=== PATIENT | male | born 1995 | race Hispanic/Latino ===

== ENCOUNTER 2023-01-09 02:53 | Emergency (ER) | payer BC ==
[2023-01-09 14:02] LABS: ALT/SGPT 34 U/L (16-61); AST/SGOT 13 U/L (15-37); Albumin 3.9 g/dL (3.4-5.0); Alkaline Phosphatase 114 U/L (45-117); BUN Blood Urea Nitrogen 14 mg/dL (7-18); Bicarbonate 24 mEq/L (21-32); Bilirubin Direct < 0.1 mg/dL (0-0.2); Bilirubin Indirect, Calculated ND mg/dL (0.2-0.8); Bilirubin Total 0.4 mg/dL (0.2-1.0); Glomerular Filtration Rate 110 ml/min (=/>90); Glucose Level 113 mg/dL (74-106); Magnesium 2.2 mg/dL (1.6-2.4); NT PRO-BNP 11 pg/mL (<125); Potassium 3.7 mEq/L (3.5-5.1); Protein, Total 8.1 g/dL (6.4-8.2); Sodium Level 138 mEq/L (136-145); Troponin High Sensitivity 3.3 pg/mL (<58.9)
[2023-01-09 14:06] LABS: Absolute Lymphocytes (CBC) 3.5 K/uL (0.7-4.9); Lymphocytes % 22.2 % (15.3-44.8); MCV 84.4 fL (80-100); MPV 9.2 fL (7.6-11.3); RBC Red Blood Cell Count 5.56 M/uL (4.33-5.43)
[2023-01-09 14:07] LABS: Protime INR 1.12
--- NOTE | 2023-01-09 14:38 | RAD REPORT ---
EXAM DESCRIPTION: US - Abdomen Exam Limited - 01/09/2023 1:57 pm CLINICAL HISTORY: ABD PAIN COMPARISON: No comparisons FINDINGS: The gallbladder demonstrates small gallstones. No pericholecystic fluid or gallbladder wal l thickening. The common bile duct is normal measuring 4 mm. The liver demonstrates no findings of intrahepatic biliary dilatation. IMPRESSION: Cholelithiasis.
--- NOTE | 2023-01-09 15:41 | EKG ---
Test Date: 2023-01-09 Test Time: 03:07:04 Inside Meter Tester: ALBA MEASUREMENT RESULTS: Intervals: Rate: 75 OK: 150 QRSD: 94 QT: 350 QTc: 390 [place]: P: 14 OK: 150 QRS: 6 T: 3 INTERPRETIVE STATEMENTS: Sinus rhythm with marked sinus arrhythmia Otherwise normal ECG No previous ECG available for comparison Electronically Signed On 01-09-23 15:40:56 CDT by Daryl Freeman
--- NOTE | 2023-01-09 16:42 | EDPHYS ---
Physician Documentation [facility] Name: Art Corral Age: 27 yrs Sex: Male : 1995 Arrival Date: 01/09/2023 Time: 02:53 Bed 5 Private MD: ED Physician Erica Murdock HPI: 01/09 04:45 This 27 yrs old Male presents to ER via Ambulatory with complaints of Chest Pain. sp3 04:45 27-year-old male with no significant past medical history presents to the ED with chief sp3 complaint epigastric pain radiating superiorly in his chest. This is the third episode he has had over the last several months. This was coupled with 4-5 episodes of emesis today, nonbloody nonmucous. Denies any diarrhea, fever, high-fat food, alcohol intake, recreational drug use, back pain, shortness of breath, URI symptoms, or any other signs or symptoms on ROS at this time. Symptoms have now self resolved and patient is completely back to baseline. However with this being the third time, he decided to be seen. No past surgical history noted.. Historical: - Allergies: 02:59 No Known Allergies; as6 - PMHx: 02:59 None; as6 - PSHx: 02:59 None; as6 - Immunization history:: Client reports receiving the 2nd dose of the Covid vaccine, pfizer . - Social history:: Smoking status: Patient reports the use of cigarette tobacco products, denies chronic smoking, but will smoke occasionally. ROS: 04:49 Constitutional: Negative for fever, chills, and weight loss, Eyes: Negative for injury, sp3 pain, redness, and discharge, ENT: Negative for injury, pain, and discharge, Neck: Negative for injury, pain, and swelling, Respiratory: Negative for shortness of breath, cough, wheezing, and pleuritic chest pain, Back: Negative for injury and pain, MS/Extremity: Negative for injury and deformity, Skin: Negative for injury, rash, and discoloration, Neuro: Negative for headache, weakness, numbness, tingling, and seizure, Psych: Negative for depression, anxiety, suicide ideation, homicidal ideation, and hallucinations, Allergy/Immunology: Negative for hives, rash, and allergies, Endocrine: Negative for neck swelling, polydipsia, polyuria, polyphagia, and marked weight changes, Hematologic/Lymphatic: Negative for swollen nodes, abnormal bleeding, and unusual bruising. 04:49 All other systems are negative. Exam: 04:49 Constitutional: This is a well developed, well nourished patient who is awake, alert, sp3 and in no acute distress. Head/Face: Normocephalic, atraumatic. Eyes: Pupils equal round and reactive to light, extra-ocular motions intact. Lids and lashes normal. Conjunctiva and sclera are non-icteric and not injected. Cornea within normal limits. Periorbital areas with no swelling, redness, or edema. ENT: Nares patent. No nasal discharge, no septal abnormalities noted. External auditory canals are clear. Oropharynx with no redness, swelling, or masses, exudates, or evidence of obstruction, uvula midline. Mucous membranes moist. Neck: Trachea midline, no thyromegaly or masses palpated, and no cervical lymphadenopathy. Supple, full range of motion without nuchal rigidity, or vertebral point tenderness. No Meningismus. Chest/axilla: Normal chest wall appearance and motion. Nontender with no deformity. No lesions are appreciated. Cardiovascular: Regular rate and rhythm with a normal S1 and S2. No gallops, murmurs, or rubs. Normal PMI, no JVD. No pulse deficits. Respiratory: Lungs have equal breath sounds bilaterally, clear to auscultation and percussion. No rales, rhonchi or wheezes noted. No increased work of breathing, no retractions or nasal flaring. Back: No spinal tenderness. No costovertebral tenderness. Full range of motion. Skin: Warm, dry with normal turgor. Normal color with no rashes, no lesions, and no evidence of cellulitis. MS/ Extremity: Pulses equal, no cyanosis. Neurovascular intact. Full, normal range of motion. Neuro: Awake and alert, GCS 15, oriented to person, place, time, and situation. Cranial nerves II-XII grossly intact. Motor strength 5/5 in all extremities. Sensory grossly intact. Cerebellar exam normal. Normal gait. Psych: Awake, alert, with orientation to person, place and time. Behavior, mood, and affect are within normal limits. 04:49 ECG was reviewed by the Attending Physician. EKG demonstrates normal sinus rhythm at 75 bpm with normal intervals, normal QRS, normal axis, normal ST/T-segment's without evidence of acute ischemia. Vital Signs: 02:56 BP 146 / 103; Pulse 70; Resp 18 S; Temp 98(O); Pulse Ox 100% on R/A; Weight 124.74 kg as6 (R); Height 5 ft. 9 in. (R); Pain 6/10; 03:24 BP 136 / 104; Pulse 78; Resp 16 S; Pulse Ox 99% on R/A; ha1 04:00 BP 125 / 79; Pulse 73; Resp 16 S; Pulse Ox 98% on R/A; ha1 04:40 BP 113 / 79; Pulse 67; Resp 16 S; Pulse Ox 98% on R/A; ha1 02:56 Body Mass Index 40.61 (124.74 kg, 175.26 cm) as6 02:56 Pain Scale: Adult as6 MDM: 03:03 Patient medically screened. sp3 04:50 Data reviewed: vital signs, nurses notes, lab test result(s), EKG. ED course: sp3 27-year-old male with epigastric pain. Laboratory values demonstrate 15,000 WBC count. We will obtain ultrasound as well right upper quadrant to rule out any biliary pathology. I am not highly concerned for any other significant pathology including appendicitis, vascular disease, acute coronary syndrome, bowel obstruction, gastroenteritis, or any other significant findings. If ultrasound is negative, we will safely discharge patient home. Patient is required no medication at all during his stay. Lipase is also pending and will evaluate once returned. Final disposition pending work-up and remaining results.. 05:26 ED course: Lipase is normal and ultrasound demonstrates gallstones without sp3 pericholecystic fluid, common bile duct dilatation or any other pathology. I explained to the patient biliary colic versus cholecystitis and I feel he understands the difference. I will be discharging him with follow-up to general surgery for elective cholecystectomy and he knows to return for any worsening symptoms to the emergency department. Pain and nausea remain fully resolved at this time.. 01/09 03:01 Order name: Cardiac monitoring; Complete Time: 03:16 6 01/09 03:01 Order name: EKG - Nurse/Tech; Complete Time: 03:16 6 01/09 03:01 Order name: IV Saline Lock; Complete Time: 03:16 01/09 03:01 Order name: Labs collected and sent; Complete Time: 03:16 01/09 03:01 Order name: O2 Per Protocol; Complete Time: 03:16 01/09 03:01 Order name: O2 Sat Monitoring; Complete Time: 03:16 Administered Medications: No medications were administered Disposition Summary: 01/09/23 05:28 Discharge Ordered Location: Home sp3 Condition: Stable sp3 Diagnosis - Biliary colic, abdominal pain, vomiting sp3 Followup: sp3 - With: Cameron Muñoz MD - When: Upon discharge from the Emergency Department - Reason: Recheck today's complaints, Continuance of care Discharge Instructions: - Discharge Summary Sheet sp3 - Biliary Colic, Adult sp3 Forms: - Medication Reconciliation Form sp3 - Thank You Letter sp3 - Antibiotic Education sp3 - Prescription Opioid Use sp3 - Patient Portal Instructions sp3 - Work release form ha1 - SBAR form mc5 Prescriptions: - ondansetron 8 mg Oral tablet,disintegrating - take 1 tablet by ORAL route every 12 hours; 20 tablet; Refills: 0, Product sp3 Selection Permitted Signatures: Erica Murdock MD MD sp3 Rafy Santos, RN RN as6
--- NOTE | 2023-01-09 16:42 | ER ---
Nurse's Notes [facility] Name: Art Corral Age: 27 yrs Sex: Male : 1995 Arrival Date: 01/09/2023 Time: 02:53 Bed 5 Private MD: Diagnosis: Biliary colic, abdominal pain, vomiting Presentation: 01/09 02:56 Chief complaint: Patient states: "I am having chest pain that started last night and it as6 hasn't gone away". Coronavirus screen: At this time, the client does not indicate any symptoms associated with coronavirus-19. Ebola Screen: No symptoms or risks identified at this time. Initial Sepsis Screen: Does the patient meet any 2 criteria? No. Patient's initial sepsis screen is negative. Does the patient have a suspected source of infection? No. Patient's initial sepsis screen is negative. Risk Assessment: Do you want to hurt yourself or someone else? Patient reports no desire to harm self or others. Onset of symptoms was January 08, 2023 at 22:30. 02:56 Method Of Arrival: Ambulatory as6 02:56 Acuity: BAHMAN 3 as6 Historical: - Allergies: 02:59 No Known Allergies; as6 - PMHx: 02:59 None; as6 - PSHx: 02:59 None; as6 - Immunization history:: Client reports receiving the 2nd dose of the Covid vaccine, pfizer . - Social history:: Smoking status: Patient reports the use of cigarette tobacco products, denies chronic smoking, but will smoke occasionally. Screenin:55 [facility] ED Fall Risk Assessment (Adult) History of falling in the last 3 months, ha1 including since admission No falls in past 3 months (0 pts) Confusion or Disorientation No (0 pts) Intoxicated or Sedated No (0 pts) Impaired Gait No (0 pts) Mobility Assist Device Used No (0 pt) Altered Elimination No (0 pt) Score/Fall Risk Level 0 - 2 = Low Risk Oriented to surroundings, Maintained a safe environment, Educated pt \\T\\ family on fall prevention, incl call for assistance when getting out of bed. Abuse screen: Denies threats or abuse. Denies injuries from another. Nutritional screening: No deficits noted. Tuberculosis screening: No symptoms or risk factors identified. Assessment: 02:55 General: Appears comfortable, Behavior is calm, cooperative. Pain: Complains of pain in ha1 mid epigastric Pain does not radiate. Pain currently is 8 out of 10 on a pain scale. Quality of pain is described as burning, pressure, Pain began 4 hours ago. Neuro: Level of Consciousness is awake, alert, obeys commands, Oriented to person, place, time, situation. Cardiovascular: Heart tones S1 S2 present Patient's skin is warm and dry. Rhythm is sinus rhythm. Respiratory: Airway is patent Respiratory effort is even, unlabored, Respiratory pattern is regular, symmetrical. GI: Abdomen is round non-distended, Reports nausea, vomiting. : No signs and/or symptoms were reported regarding the genitourinary system. Derm: Skin is pink, warm \\T\\ dry. Musculoskeletal: Circulation, motion, and sensation intact. 03:50 Reassessment: Patient and/or family updated on plan of care and expected duration. Pain ha1 level reassessed. Patient is alert, oriented x 3, equal unlabored respirations, skin warm/dry/pink. 04:40 Reassessment: Patient and/or family updated on plan of care and expected duration. Pain ha1 level reassessed. Patient is alert, oriented x 3, equal unlabored respirations, skin warm/dry/pink. Patient states symptoms have improved. 05:40 Reassessment: Patient and/or family updated on plan of care and expected duration. Pain ha1 level reassessed. Patient is alert, oriented x 3, equal unlabored respirations, skin warm/dry/pink. Patient states feeling better. Patient states symptoms have improved. Vital Signs: 02:56 BP 146 / 103; Pulse 70; Resp 18 S; Temp 98(O); Pulse Ox 100% on R/A; Weight 124.74 kg as6 (R); Height 5 ft. 9 in. (R); Pain 6/10; 03:24 BP 136 / 104; Pulse 78; Resp 16 S; Pulse Ox 99% on R/A; ha1 04:00 BP 125 / 79; Pulse 73; Resp 16 S; Pulse Ox 98% on R/A; ha1 04:40 BP 113 / 79; Pulse 67; Resp 16 S; Pulse Ox 98% on R/A; ha1 02:56 Body Mass Index 40.61 (124.74 kg, 175.26 cm) as6 02:56 Pain Scale: Adult as6 ED Course: 02:53 Patient arrived in ED. ag3 02:55 Patient has correct armband on for positive identification. Placed in gown. Bed in low ha1 position. Call light in reach. Side rails up X 1. Adult w/ patient. 02:55 Client placed on continuous cardiac and pulse oximetry monitoring. NIBP monitoring ha1 applied. 02:55 Patient maintains SpO2 saturation greater than 95% on room air. ha1 02:59 Triage completed. as6 03:00 Arm band placed on. as6 03:03 Erica Murdock MD is Attending Physician. sp3 03:04 Gerardo Mcgowan RN is Primary Nurse. rv 03:10 Inserted saline lock: 20 gauge in left antecubital area, using aseptic technique. Blood ha1 collected. 05:27 Cameron Muñoz MD is Referral Physician. sp3 05:40 Provided Education on: follow up and medication administration. . ha1 05:43 No provider procedures requiring assistance completed. ha1 05:43 IV discontinued, intact, bleeding controlled, No redness/swelling at site. Pressure ha1 dressing applied. Administered Medications: No medications were administered Medication: 05:43 VIS not applicable for this client. ha1 Outcome: 05:28 Discharge ordered by . sp3 05:43 Patient left the ED. ha1 05:43 Discharged to home ambulatory, with family. ha1 05:43 Condition: stable 05:43 Discharge instructions given to patient, family, Instructed on discharge instructions, follow up and referral plans. medication usage, Demonstrated understanding of instructions, follow-up care, medications, Prescriptions given X 1. Signatures: Gerardo Mcgowan, RN RN rv Carleen Burgos ag3 Erica Murdock MD MD sp3 Rafy Santos RN RN as6 Sonia Flores RN RN ha1
--- NOTE | 2023-01-09 17:05 | RAD REPORT ---
EXAM DESCRIPTION: Jeremiah Single View01/09/2023 4:59 pm CLINICAL HISTORY: Chest pain COMPARISON: none FINDINGS: The lungs appear clear of acute infiltrate. The heart is normal size IMPRESSION: No acute abnormalities displayed
[2023-01-09 17:30] LABS: Lipase 29 U/L (13-75)
[2023-01-09 17:37] VITALS: TEMP 98
[2023-01-09 17:40] VITALS: O2SAT 98
[2023-01-09 17:41] VITALS: BP 113/79
== END 2023-01-09 05:43 | disposition home or self-care (01) ==
LOC: ER 02:53
DX: K80.50 Calculus of bile duct without cholangitis or cholecystitis without obstruction (principal); R11.10 Vomiting, unspecified
CPT/HCPCS: 36415; 71045; 76705; 80048; 80076; 83690; 83735; 83880; 84484; 85025; 85610; 93005; 99284

== ENCOUNTER 2023-09-16 09:57 | Observation (INO) | payer BC, SELFPAY ==
[2023-09-16] MEDS ORDERED: ONDANSETRON 4 MG/2 ML VIAL ONE ×2 (10:23→18:33)
[2023-09-16] MEDS ORDERED: MORPHINE 4 MG/ML SYR ONE (10:24)
[2023-09-16] MEDS ORDERED: NA CHLORIDE 0.9% 1,000 ML ONE ×2 (10:24→13:12)
[2023-09-16] MEDS ORDERED: FAMOTIDINE 20 MG/2 ML VIAL IV ONE (10:24)
[2023-09-16 10:37] LABS: Absolute Basophils 0.1 K/uL (0-0.5); Absolute Lymphocytes (CBC) 1.6 K/uL (0.7-4.9); Absolute Monocytes 0.6 K/uL (0.1-1.3); Absolute Neutrophil 11.9 K/uL (1.8-8.0); Basophils % 0.6 % (0-1.3); Eosinophils % 0.2 % (0-4.4); Hematocrit 44.8 % (39.6-49.0); Hemoglobin 14.8 g/dL (13.6-17.9); Lymphocytes % 11.6 % (15.3-44.8); MCV 84.9 fL (80-100); MPV 8.5 fL (7.6-11.3); Monocytes % 3.9 % (3.3-12.3); Neutrophils % 83.7 % (41.7-73.7); Nucleated Red Blood Cells % 0.1 % (0-0); Platelets 342 thou/uL (152-406); RBC Red Blood Cell Count 5.28 M/uL (4.33-5.43)
[2023-09-16 10:55] LABS: Albumin 3.9 g/dL (3.4-5.0); Bilirubin Total 0.5 mg/dL (0.2-1.0); Globulin 3.9 g/dL (2.3-3.5); Protein, Total 7.8 g/dL (6.4-8.2)
[2023-09-16] MEDS ORDERED: ACETAMINOPHEN 500 MG TAB PO PRN (11:08)
[2023-09-16] MEDS ORDERED: ONDANSETRON 4 MG/2 ML VIAL IV PRN ×2 (11:08→20:19)
--- NOTE | 2023-09-16 11:11 | RAD REPORT ---
EXAM DESCRIPTION: US - Abdomen Exam Limited - 09/16/2023 11:03 am CLINICAL HISTORY: ABD PAIN COMPARISON: Abdomen Exam Limited dated 01/09/2023 FINDINGS: The gallbladder demonstrates small shadowing gallstones and sludge borderline gallbladder wall thickening. The common bile duct is normal measuring 4 mm. The gallbladder is distended. No sono graphic Joseph sign elicited. The liver demonstrates no findings of intrahepatic biliary dilatation. IMPRESSION: Cholelithiasis with distended gallbladder and borderline gallbladder wall thickening. Th is could reflect early or mild acute cholecystitis in the appropriate clinical setting. No sonographi c Joseph sign, however.
--- NOTE | 2023-09-16 11:12 | ER ---
Nurse's Notes [facility] Name: Art Corral Age: 27 yrs Sex: Male : 1995 Arrival Date: 09/16/2023 Time: 09:57 Bed 14 Private MD: Diagnosis: Epigastric abdominal tenderness;Other cholelithiasis without obstruction;Acute cholecystitis;Elevated white blood cell count Presentation: 09/15 10:02 Chief complaint: Patient states: mid back pain and epigastric pain, n/v since 0500. Has ko1 gallstones, was informed last visit. Coronavirus screen: At this time, the client does not indicate any symptoms associated with coronavirus-19. Ebola Screen: No symptoms or risks identified at this time. Initial Sepsis Screen: Does the patient meet any 2 criteria? No. Patient's initial sepsis screen is negative. Does the patient have a suspected source of infection? No. Patient's initial sepsis screen is negative. Risk Assessment: Do you want to hurt yourself or someone else? Patient reports no desire to harm self or others. Onset of symptoms was September 16, 2023. 10:02 Method Of Arrival: Ambulatory ko1 10:02 Acuity: BAHMAN 3 ko1 Triage Assessment: 10:04 General: Appears distressed, uncomfortable, Behavior is cooperative, appropriate for ko1 age. Pain: Complains of pain in epigastric area. Historical: - Allergies: 10:04 No Known Allergies; ko1 - Home Meds: 10:04 None [Active]; ko1 - PMHx: 10:04 None; ko1 - PSHx: 10:04 None; ko1 - Immunization history:: Adult Immunizations unknown. - Social history:: Smoking status: Patient denies any tobacco usage or history of. Screenin:51 [facility] ED Fall Risk Assessment (Adult) History of falling in the last 3 months, ph including since admission No falls in past 3 months (0 pts) Confusion or Disorientation No (0 pts) Intoxicated or Sedated No (0 pts) Impaired Gait No (0 pts) Mobility Assist Device Used No (0 pt) Altered Elimination No (0 pt) Score/Fall Risk Level 0 - 2 = Low Risk Oriented to surroundings, Maintained a safe environment, Hourly rounding (assess needs \T\ fall precautionary measures) done. Abuse screen: Denies threats or abuse. Denies injuries from another. Nutritional screening: No deficits noted. Tuberculosis screening: No symptoms or risk factors identified. Assessment: 10:30 General: Appears in no apparent distress. uncomfortable, Behavior is calm, cooperative, ph appropriate for age. Pain: Complains of pain in epigastric area Pain radiates to back. Neuro: Level of Consciousness is awake, alert, obeys commands, Oriented to person, place, time, situation. Cardiovascular: Capillary refill < 3 seconds in bilateral fingers Patient's skin is warm and dry. Respiratory: Airway is patent Respiratory effort is even, unlabored, Respiratory pattern is regular, symmetrical. GI: Reports epigastric pain, Patient currently denies diarrhea, nausea, vomiting. Derm: Skin is pink, warm \T\ dry. Musculoskeletal: Circulation, motion, and sensation intact. Range of motion: intact in all extremities. 11:33 Reassessment: Patient appears in no apparent distress at this time. Patient and/or ph family updated on plan of care and expected duration. Pain level reassessed. Patient is alert, oriented x 3, equal unlabored respirations, skin warm/dry/pink. Pt c/o pain,states that morphine is not helping, ERP notified, verbal order received for 1 mg Dilaudid IVP, see MAR. 13:00 Reassessment: Patient appears in no apparent distress at this time. Patient and/or ph family updated on plan of care and expected duration. Pain level reassessed. Patient is alert, oriented x 3, equal unlabored respirations, skin warm/dry/pink. 14:00 Reassessment: Patient appears in no apparent distress at this time. Patient and/or ph family updated on plan of care and expected duration. Pain level reassessed. Patient is alert, oriented x 3, equal unlabored respirations, skin warm/dry/pink. Vital Signs: 10:02 BP 158 / 102; Pulse 67; Resp 16; Temp 97.9(T); Pulse Ox 100% on R/A; ko1 11:30 BP 141 / 90 LA Supine (auto/lg); Pulse 67 LA; Resp 18; Pulse Ox 100% on R/A; ph 13:10 BP 144 / 96 LA Supine (auto/lg); Pulse 68; Resp 16 S; Pulse Ox 100% on R/A; ph ED Course: :58 Patient arrived in ED. rg4 10:02 Genaro Anaya MD is Attending Physician. jean carlos 10:04 Triage completed. ko1 10:04 Arm band placed on left wrist. Patient placed in an exam room, on a stretcher, on pulse ko1 oximetry, Patient notified of wait time. 10:05 Vielka Fields RN is Primary Nurse. ph 10:47 CMP Sent. ph 10:47 Lipase Sent. ph 10:57 Cameron Muñoz MD is Hospitalizing Provider. jean carlos 11:04 US Abdomen Limited In Process Unspecified. EDMS 11:28 Urinalysis w/ reflexes Sent. ph 11:43 Cameron Muñoz MD is Hospitalizing Provider. jean carlos 11:43 Rhett Cunningham MD is Hospitalizing Provider. jean carlos 12:00 Patient has correct armband on for positive identification. Placed in gown. Bed in low ph position. Call light in reach. Side rails up X 1. Pulse ox on. NIBP on. Door closed. Noise minimized. Warm blanket given. 12:00 Provided Education on: Time for test results and use of call light. ph 14:51 No provider procedures requiring assistance completed. Patient admitted, IV remains in ph place. Administered Medications: 10:35 Drug: NS 0.9% IV 1000 ml IV at 1 bolus Per protocol; 1000 mL bolus Route: IV; Rate: 1 ph bolus; Site: right forearm; 12:00 Follow up: Response: No adverse reaction; IV Status: Completed infusion; IV Intake: ph 1000ml 13:13 Follow up: Response: No adverse reaction; IV Status: Infusion continued; IV Intake: ph 1000ml 10:35 Drug: Famotidine IVP 20 mg IVP once; dilute with 10 mL 0.9% NaCl; give over 2 minutes ph Route: IVP; Site: right forearm; 11:00 Follow up: Response: No adverse reaction ph 10:35 Drug: Ondansetron IVP 4 mg IVP once; over 2 minutes Route: IVP; Site: right forearm; ph 11:00 Follow up: Response: No adverse reaction ph 10:48 Drug: morphine IVP or IV 4 mg IVP once over 4 mins Route: IVP; Infused Over: 4 mins; ph Site: right forearm; 11:10 Follow up: Response: No adverse reaction; Pain is unchanged, physician notified ph 11:43 Drug: Piperacillin-Tazobactam IVPB 3.375 grams IVPB once over 60 mins; (mix in NS 100 ph mL) Route: IVPB; Infused Over: 60 mins; Site: right forearm; 13:13 Follow up: Response: No adverse reaction; IV Status: Completed infusion; IV Intake: ph 100ml 11:43 Drug: HYDROmorphone IVP 1 mg IVP once {Note: 04/04 pain.} Route: IVP; Site: right ph forearm; 12:00 Follow up: Response: No adverse reaction; Pain is decreased ph Medication: 14:52 VIS not applicable for this client. ph Intake: 12:00 IV: 1000ml; Total: 1000ml. ph 13:13 IV: 100ml; Total: 1100ml. ph 13:13 IV: 1000ml; Total: 2100ml. ph Outcome: 11:12 Decision to Hospitalize by Provider. jean carlos 14:51 Admitted to Med/surg accompanied by tech, family with patient, via wheelchair, room ph 430, with chart, 14:51 Condition: stable 14:51 Instructed on the need for admit, 14:54 Patient left the ED. ph Signatures: Dispatcher [employer] Genaro Graves MD MD cha Hall, Patricia, RN RN Brooklynn Fox rg4 Grace Esquivel RN RN ko1
--- NOTE | 2023-09-16 11:12 | EDPHYS ---
Physician Documentation [facility] Name: Art Corral Age: 27 yrs Sex: Male : 1995 Arrival Date: 09/16/2023 Time: 09:57 Bed 14 Private MD: ED Physician Genaro Anaya HPI: 09/15 10:30 This 27 yrs old Male presents to ER via Ambulatory with complaints of jean carlos Abdominal Pain, Back Pain. 10:30 The patient presents with pain that is acute, with no known mechanism of injury. The jean carlos symptoms are located in the lumbar area. Historical: - Allergies: 10:04 No Known Allergies; ko1 - Home Meds: 10:04 None [Active]; ko1 - PMHx: 10:04 None; ko1 - PSHx: 10:04 None; ko1 - Immunization history:: Adult Immunizations unknown. - Social history:: Smoking status: Patient denies any tobacco usage or history of. ROS: 10:31 Constitutional: Negative for fever, chills, and weight loss, Eyes: Negative for injury, jean carlos pain, redness, and discharge, ENT: Negative for injury, pain, and discharge, Neck: Negative for injury, pain, and swelling, Cardiovascular: Negative for chest pain, palpitations, and edema, Respiratory: Negative for shortness of breath, cough, wheezing, and pleuritic chest pain, Back: Negative for injury and pain, : Negative for injury, bleeding, discharge, and swelling, MS/Extremity: Negative for injury and deformity, Skin: Negative for injury, rash, and discoloration, Neuro: Negative for headache, weakness, numbness, tingling, and seizure, Psych: Negative for depression, anxiety, suicide ideation, homicidal ideation, and hallucinations, Allergy/Immunology: Negative for hives, rash, and allergies, Endocrine: Negative for neck swelling, polydipsia, polyuria, polyphagia, and marked weight changes, Hematologic/Lymphatic: Negative for swollen nodes, abnormal bleeding, and unusual bruising, 10:31 Abdomen/GI: Positive for abdominal pain, nausea, vomiting, abdominal cramps, of the epigastric area, right upper quadrant and left upper quadrant, Exam: 10:31 Constitutional: This is a well developed, well nourished patient who is awake, alert, jean carlos and in no acute distress. Head/Face: Normocephalic, atraumatic. Eyes: Pupils equal round and reactive to light, extra-ocular motions intact. Lids and lashes normal. Conjunctiva and sclera are non-icteric and not injected. Cornea within normal limits. Periorbital areas with no swelling, redness, or edema. ENT: Nares patent. No nasal discharge, no septal abnormalities noted. Tympanic membranes are normal and external auditory canals are clear. Oropharynx with no redness, swelling, or masses, exudates, or evidence of obstruction, uvula midline. Mucous membranes moist. Neck: Trachea midline, no thyromegaly or masses palpated, and no cervical lymphadenopathy. Supple, full range of motion without nuchal rigidity, or vertebral point tenderness. No Meningismus. Chest/axilla: Normal chest wall appearance and motion. Nontender with no deformity. No lesions are appreciated. Cardiovascular: Regular rate and rhythm with a normal S1 and S2. No gallops, murmurs, or rubs. Normal PMI, no JVD. No pulse deficits. Respiratory: Lungs have equal breath sounds bilaterally, clear to auscultation and percussion. No rales, rhonchi or wheezes noted. No increased work of breathing, no retractions or nasal flaring. Back: No spinal tenderness. No costovertebral tenderness. Full range of motion. Male : Normal genitalia with no discharge or lesions. Skin: Warm, dry with normal turgor. Normal color with no rashes, no lesions, and no evidence of cellulitis. MS/ Extremity: Pulses equal, no cyanosis. Neurovascular intact. Full, normal range of motion. Neuro: Awake and alert, GCS 15, oriented to person, place, time, and situation. Cranial nerves II-XII grossly intact. Motor strength 5/5 in all extremities. Sensory grossly intact. Cerebellar exam normal. Normal gait. Psych: Awake, alert, with orientation to person, place and time. Behavior, mood, and affect are within normal limits. 10:31 Abdomen/GI: Inspection: abdomen appears normal, Bowel sounds: normal, Palpation: moderate abdominal tenderness, in the epigastric area, right upper quadrant and left upper quadrant, Liver: no appreciated palpable abnormalities, Hernia: not appreciated, Vital Signs: 10:02 BP 158 / 102; Pulse 67; Resp 16; Temp 97.9(T); Pulse Ox 100% on R/A; ko1 11:30 BP 141 / 90 LA Supine (auto/lg); Pulse 67 LA; Resp 18; Pulse Ox 100% on R/A; ph 13:10 BP 144 / 96 LA Supine (auto/lg); Pulse 68; Resp 16 S; Pulse Ox 100% on R/A; ph MDM: 10:02 Patient medically screened. [facility] 10:32 Differential diagnosis: Cholelithiasis Obesity. Data reviewed: vital signs, nurses [facility] notes, lab test result(s), radiologic studies. Consideration of Admission/Observation Escalation of care including admission/observation considered. I considered the following discharge prescriptions or medication management in the emergency department Medications were administered in the Emergency Department. See MAR. Independent interpretation of the following test(s) in the Emergency Department CT Scan: My interpretation is CT ABD/PEL. Radiology Department Ultrasound: My interpretation is GB USG. Care significantly affected by the following chronic conditions: Obesity, GALLSTONES, SMALL. 09/15 10:13 Order name: CBC with Diff; Complete Time: 10:55 [facility] 09/15 10:13 Order name: CMP; Complete Time: 10:55 [facility] 09/15 10:13 Order name: Lipase; Complete Time: 10:55 [facility] 09/15 10:13 Order name: Urinalysis w/ reflexes [facility] 09/15 10:13 Order name: CT Abd/Pelvis - IV Contrast Only [facility] 09/15 10:30 Order name: US Abdomen Limited; Complete Time: 11:26 [facility] 09/15 11:22 Order name: CT; Complete Time: 11:26 [facility] 09/15 10:13 Order name: IV Saline Lock; Complete Time: 10:47 [facility] 09/15 10:13 Order name: Labs collected and sent; Complete Time: 10:47 [facility] Administered Medications: 10:35 Drug: NS 0.9% IV 1000 ml IV at 1 bolus Per protocol; 1000 mL bolus Route: IV; Rate: 1 ph bolus; Site: right forearm; 12:00 Follow up: Response: No adverse reaction; IV Status: Completed infusion; IV Intake: ph 1000ml 13:13 Follow up: Response: No adverse reaction; IV Status: Infusion continued; IV Intake: ph 1000ml 10:35 Drug: Famotidine IVP 20 mg IVP once; dilute with 10 mL 0.9% NaCl; give over 2 minutes ph Route: IVP; Site: right forearm; 11:00 Follow up: Response: No adverse reaction ph 10:35 Drug: Ondansetron IVP 4 mg IVP once; over 2 minutes Route: IVP; Site: right forearm; ph 11:00 Follow up: Response: No adverse reaction ph 10:48 Drug: morphine IVP or IV 4 mg IVP once over 4 mins Route: IVP; Infused Over: 4 mins; ph Site: right forearm; 11:10 Follow up: Response: No adverse reaction; Pain is unchanged, physician notified ph 11:43 Drug: Piperacillin-Tazobactam IVPB 3.375 grams IVPB once over 60 mins; (mix in NS 100 ph mL) Route: IVPB; Infused Over: 60 mins; Site: right forearm; 13:13 Follow up: Response: No adverse reaction; IV Status: Completed infusion; IV Intake: ph 100ml 11:43 Drug: HYDROmorphone IVP 1 mg IVP once {Note: 1010 pain.} Route: IVP; Site: right ph forearm; 12:00 Follow up: Response: No adverse reaction; Pain is decreased ph Disposition Summary: 09/16/23 11:12 Hospitalization Ordered Notes: Hospitalization Status: Observation jean carlos Location: Telemetry/MedSurg (observation) jean carlos Condition: Stable jean carlos Problem: new jean carlos Symptoms: have improved jean carlos Bed/Room Type: Standard jean carlos Provider: Rhett Cunningham(09/16/23 11:44) jean carlos Room Assignment: 420(09/16/23 13:42) eb Diagnosis - Epigastric abdominal tenderness jean carlos - Other cholelithiasis without obstruction jean carlos - Acute cholecystitis jean carlos - Elevated white blood cell count jean carlos Forms: - Medication Reconciliation Form jean carlos - SBAR form jean carlos - Leadership Thank You Letter jean carlos Signatures: Dispatcher [employer] Genaro Graves MD MD cha Hall, Patricia, RN RN ph Julia Briceño Jennifer, FNP FNP [facility] Grace Esquivel RN RN ko1 Corrections: (The following items were deleted from the chart) 11:44 11:12 Cameron Muñoz cha jean carlos 13:42 11:12 jean carlos dickens
--- NOTE | 2023-09-16 11:22 | RAD REPORT ---
EXAM DESCRIPTION: CTAbdomen Pelvis W Contrast - 09/16/2023 11:11 am CLINICAL HISTORY: ABD PAIN COMPARISON: No comparisons TECHNIQUE: CT of the abdomen and pelvis was performed. All CT scans are performed using dose optimization technique as appropriate and may include automated exposure control or mA/KV adjustment according to patient size. FINDINGS: Lower chest: No acute abnormality. Liver: Hepatic steatosis. Biliary: Nonspecific distended gallbladder. Subtle pericholecystic stranding suspected. No radiopaque gallstones. Stomach: No significant focal abnormality. Duodenum: No significant focal abnormality. Pancreas: No significant abnormality. Spleen: No significant abnormality. Adrenal: No suspicious lesions. Kidney/ureter: No hydronephrosis. No renal calculi. Retroperitoneum: No retroperitoneal adenopathy. Vascular: No aneurysm. Bowel: No significant focal abnormality. Normal appendix . Peritoneum: No ascites or free air. Bladder: Grossly unremarkable. Reproductive: No adnexal masses. Bones: No acute fracture. Other: n/a IMPRESSION: Distended gallbladder with subtle pericholecystic stranding and gallstones identified on the ultrasound could reflect early or mild acute cholecystitis. Normal appendix. No urinary tract ca lculi.
[2023-09-16] MEDS ORDERED: HYDROMORPHONE HCL 1 MG/ML INJ ONE (11:36)
[2023-09-16 11:37] LABS: Specific Gravity > 1.030 (1.005-1.030); Urine Bilirubin NEGATIVE (Negative); Urine Blood Negative (Negative); Urine Clarity Clear (Clear); Urine Color Light-Yellow (Yellow); Urine Glucose NEGATIVE (Negative); Urine Ketones NEGATIVE (Negative); Urine Microscopic Reflex YN NO UMIC; Urine Nitrite NEGATIVE (Negative); Urine Protein NEGATIVE (Negative); Urine Urobilinogen Normal (Normal)
[2023-09-16] MEDS ORDERED: NA CHLORIDE 0.9% 100 ML ONE (11:37)
[2023-09-16] MEDS ORDERED: PIPERACIL/TAZO 3.375 GM VIAL IV ONE (11:37)
[2023-09-16] MEDS: NA CHLORIDE 0.9% 1,000 ML IV SCH ×2 (12:00→17:23)
[2023-09-16] MEDS: MORPHINE 4 MG/ML SYR IV PRN (14:57)
[2023-09-16 15:49] VITALS: BMI 39.2
[2023-09-16] MEDS: PIPER TAZO 3.375 GM in NA CHLORIDE 0.9% 100 ML IV SCH (16:04)
--- NOTE | 2023-09-16 18:13 | P.CNS ---
Date of Consult: 09/16/23 PC: Patient presented to emergency room with severe right upper quadrant abdominal pain for diagnosis and treatment. HPC: Patient has been complaining of right upper abdominal pain, denies he has had gallstones in the past. Presents now with a severe attack, pain radiating to his back. PSHx: Negative PMHx: Negative Social Hx: No known allergies Sys R: No cough, wheeze, shortness of breath no chest pain or palpitations. By history has sleep apnea, although never had diagnosis according to his . O/E: Awake alert vital signs are stable HEENT: Not jaundiced Chest: Chest movement equal bilaterally Abd: Tender in the right upper quadrant more towards the midline. [place]: Intact Data: Has documented gallstones with cholecystitis Impression: Acute on chronic cholecystitis with cholelithiasis biliary colic Plan: I will taken the operating room for laparoscopic possible open cholecystectomy with a cholangiogram. The risks of this procedure have been discussed. The possibility of bleeding, infection, injury to bile ducts blood vessels and intestines have been described. The possible need for an open and or further surgeries or procedures was discussed. She understands and wants us to proceed.
[2023-09-16] MEDS ORDERED: FENTANYL CITR 100 MCG/2 ML ONE (18:32)
[2023-09-16] MEDS ORDERED: MIDAZOLAM HCL 2 MG/2 ML INJ ONE (18:32)
[2023-09-16] MEDS ORDERED: propofoL 200 MG/20 ML VIAL IV ONE (18:32)
[2023-09-16] MEDS ORDERED: LIDOCAINE 1% MPF 5 ML VIAL ONE (18:33)
[2023-09-16] MEDS ORDERED: KETOROLAC 30 MG/ML INJ ONE (18:33)
[2023-09-16] MEDS ORDERED: GLYCOPYRROLATE 0.2 MG/ML SYR ONE (18:33)
[2023-09-16] MEDS ORDERED: NEOSTIGMINE 1 MG/ML -10 ML VIAL ONE (18:34)
[2023-09-16] MEDS ORDERED: dexAMETHasone 4 MG/ML VIAL ONE (18:34)
[2023-09-16] MEDS ORDERED: ROCURONIUM 50 MG/5 ML VIAL IV ONE (18:34)
[2023-09-16] MEDS: Ringers Lactate 1,000 ML IV ONE (19:08)
--- NOTE | 2023-09-16 19:55 | P.OP ---
Preoperative diagnosis: Acute on chronic cholecystitis with cholelithiasis, biliary colic Postoperative diagnosis: The same Primary procedure: Laparoscopic cholecystectomy Secondary procedure: Intraoperative cholangiogram Anesthesia: General Estimated blood loss: Less than 10 cc Specimen: 1 gallbladder and contents Operative Technique: The patient brought the operating room placed supine on the table. After the induction of adequate general endotracheal anesthesia, the area of the abdomen was prepped with DuraPrep solution, and he was draped in the usual aseptic manner. Attention was turned towards the umbilicus. After injecting 1.25% Marcaine, a skin incision was made. This is brought down through the skin and subcutaneous tissue. The Visiport was used to enter the peritoneal cavity, and created pneumoperitoneum to approximately 12 mmHg. Under direct vision a 5 mm trocar was placed in the upper midline, and 2 other 5 mm trocars on the right lateral side of the abdomen. The patient was then placed in reverse Trendelenburg. The table was tilted to the left. We could now visualize the right upper quadrant. We could see the omentum was wrapped around the markedly inflamed gallbladder and stuck to the serosal surface. Some of these adhesions were chronic but a lot were acute. These adhesions were gently down freeing the gallbladder from the omentum. We came down around Lizarraga's pouch. Having cleared the gallbladder from the omentum, a grasper was now placed on Lizarraga's pouch, and gentle dissection was begun. We were able to isolate both the cystic duct and artery. Having obtained a critical view, the cystic duct was milked to ensure there were no stones inside, and a clip was placed between it and the gallbladder. An opening was made into the cystic duct through which we obtained a cholangiogram. The cholangiogram demonstrated good flow of contrast into the duodenum, no filling defects were noted. The catheter was removed. Clips were placed on the distal portion of the cystic duct, the cystic duct was transected. The cystic artery having been identified was again clipped with in the usual manner and divided. Gentle dissection was done of the gallbladder from the liver bed. It was interesting to note the amount of edema between the gallbladder and the actual liver itself. Quite a lot of fluid was found in the subcutaneous tissue consistent with this acute process. The gallbladder having been detached was now placed into an Endo Catch. It was brought out through the umbilical trocar site. We again inspected the abdomen and to ensure adequate hemostasis. The patient was laid flat on the OR table, and the irrigating fluid was aspirated from the peritoneal cavity. At this point the umbilical trocar site was removed. The fascia was approximated with the Endo Close and an absorbable suture. The pneumoperitoneum was collapsed, the trocars removed, and ed[place] applied to the skin. All the port sites were again injected with 0.25% Marcaine to allow for adequate analgesia during the postoperative period. At the end of the procedure he was in a stable condition was sent to the recovery room. Needle sponge instrument count were correct. No drains were placed. 1 specimen was sent. Complications: None Transferred to: Recovery Room Condition: Good
[2023-09-16] MEDS ORDERED: Ringers Lactate 1,000 ML IV ONE (20:08)
[2023-09-16] MEDS ORDERED: MORPHINE 4 MG/ML SYR IV PRN (20:19)
[2023-09-16] MEDS: HYDROMORPHONE HCL 1 MG/ML INJ ONE (20:20)
--- NOTE | 2023-09-16 20:21 | RAD REPORT ---
EXAM DESCRIPTION: RAD - Cholangiogram Oper-Xray Or - 09/16/2023 8:13 pm CLINICAL HISTORY: LAP ANDREW W/ IOC COMPARISON: Abdomen Pelvis W Contrast dated 09/16/2023 FINDINGS/IMPRESSION: Intraoperative cholangiogram. No common bile duct stones identified. No radiologist was available for the procedure, nor will any image interpretation be provided. Steve hung refer to the procedural report for additional details Fluoro dose: 10.7 mGy Fluoro time: 0.2 minute
[2023-09-16 20:36] VITALS: O2SAT 98
[2023-09-16] MEDS: HYDROCODONE/APAP 7.5/325 MG TAB PO PRN (20:59)
[2023-09-16] MEDS ORDERED: FAMOTIDINE 20 MG/2 ML VIAL IV SCH (21:00)
[2023-09-17] MEDS ORDERED: PIPER TAZO 3.375 GM in NA CHLORIDE 0.9% 100 ML IV SCH (01:00)
[2023-09-17 09:34] LABS: Absolute Basophils 0.1 K/uL (0-0.5); Absolute Lymphocytes (CBC) 1.9 K/uL (0.7-4.9); Absolute Monocytes 1.3 K/uL (0.1-1.3); Absolute Neutrophil 16.6 K/uL (1.8-8.0); Basophils % 0.4 % (0-1.3); Hematocrit 42.2 % (39.6-49.0); Lymphocytes % 9.4 % (15.3-44.8); MCH 28.1 pg (27.0-35.0); MCHC 33.2 g/dL (32.0-36.0); MCV 84.7 fL (80-100); MPV 8.3 fL (7.6-11.3); Monocytes % 6.6 % (3.3-12.3); Neutrophils % 83.6 % (41.7-73.7); Platelets 326 thou/uL (152-406); RBC Red Blood Cell Count 4.98 M/uL (4.33-5.43); Red Cell Distribution Width 14.2 % (12.1-15.2)
[2023-09-17 09:48] LABS: Anion Gap 6.8 mEq/L (5.0-15.0); Potassium 3.8 mEq/L (3.5-5.1)
[2023-09-17 13:14] VITALS: BP 131/63; TEMP 97.4
--- NOTE | 2023-09-17 13:26 | P.DS ---
Admission Date: 09/16/23 Discharge Date: 09/17/23 Disposition: ROUTINE DISCHARGE Discharge Condition: GOOD Reason for Admission: Acute postoperative abdominal pain Procedures: Laparoscopic cholecystectomy with a cholangiogram Brief History of Present Illness: Patient presented to the emergency room with severe abdominal pain for diagnosis and treatment. Hospital Course: Patient on workup was found to have cholecystitis with cholelithiasis in the emergency room. He was brought to the operating room where he underwent a laparoscopic cholecystectomy with a normal cholangiogram. He was admitted postoperatively for observation and pain control. Today he is up ambulating, tolerating a diet. Good effort on incentive spirometry. He has had some oozing from his umbilicus, but it is not unexpected as the patient did have a small hernia in that area. I feel this is mostly irrigating and old drainage fluid. Patient and family have been instructed on wound care for that area. He is anxious to go home, and he understands how to take care of his incisions. Vital Signs/Physical Exam: Temp Pulse Resp BP Pulse Ox 97.4 F 65 16 131/63 98 09/17/23 12:00 09/17/23 12:00 09/17/23 12:00 09/17/23 12:00 09/17/23 12:00 Laboratory Data at Discharge: WBC 19.80 thou/uL (4.3-10.9) H 09/17/23 09:24 Hgb 14.0 g/dL (13.6-17.9) 09/17/23 09:24 Hct 42.2 % (39.6-49.0) 09/17/23 09:24 Plt Count 326 thou/uL (152-406) 09/17/23 09:24 Sodium 138 mEq/L (136-145) 09/17/23 09:24 Potassium 3.8 mEq/L (3.5-5.1) 09/17/23 09:24 BUN 9 mg/dL (7-18) 09/17/23 09:24 Creatinine 0.81 mg/dL (0.70-1.30) 09/17/23 09:24 Glucose 115 mg/dL (74-106) H 09/17/23 09:24 Total Bilirubin 0.5 mg/dL (0.2-1.0) 09/16/23 10:24 AST 14 U/L (15-37) L 09/16/23 10:24 ALT 25 U/L (16-61) 09/16/23 10:24 Alkaline Phosphatase 94 U/L (45-117) 09/16/23 10:24 Lipase 26 U/L (13-75) 09/16/23 10:24 Home Medications: NK [No Home Meds] 09/16/23 Followup: NONE,NONE [Primary Care Provider] -
== END 2023-09-17 14:25 | disposition home or self-care (01) ==
LOC: ER 09:57 → ERHOLD 11:06 → 4TH 13:58
PROVIDERS: ADMIT Surgery; ATTEND Surgery
PROC: BF502Z0 Other Imaging of Bile Ducts using Fluorescing Agent, Intraoperative (ICD-10-PCS; 2023-09-16)
PROC: 0FT44ZZ Resection of Gallbladder, Percutaneous Endoscopic Approach (ICD-10-PCS; principal; 2023-09-16 18:30)
DX: K80.00 Calculus of gallbladder with acute cholecystitis without obstruction (principal)
CPT/HCPCS: 36415; 74177; 74300; 76705; 80048; 80053; 81003; 83690; 85025; 88304; 94010; 96361; 96365; 96375; 99285; G0378; J1100; J1170; J2001; J2250; J2405; J2543; J2704; J2710; J3010; J7030; J7120; Q9967

== ENCOUNTER → 2023-09-17 | Emergency (ER) | payer SELFPAY ==
[~2023-09-17] MED LIST: LIDOCAINE 1% 20 ML MDV ONE; LIDOCAINE 1% MPF 5 ML VIAL ONE
[2023-09-17 23:25] LABS: Absolute Basophils 0.2 K/uL (0-0.5); Absolute Lymphocytes (CBC) 5.1 K/uL (0.7-4.9); Absolute Neutrophil 13.4 K/uL (1.8-8.0); Eosinophils % 0.1 % (0-4.4); Hematocrit 42.6 % (39.6-49.0); Hemoglobin 13.8 g/dL (13.6-17.9); Lymphocytes % 24.7 % (15.3-44.8); MCH 27.7 pg (27.0-35.0); MCHC 32.4 g/dL (32.0-36.0); MCV 85.4 fL (80-100); MPV 8.8 fL (7.6-11.3); Monocytes % 9.5 % (3.3-12.3); Neutrophils % 64.7 % (41.7-73.7); Platelets 354 thou/uL (152-406); RBC Red Blood Cell Count 4.99 M/uL (4.33-5.43); Red Cell Distribution Width 14.2 % (12.1-15.2)
--- NOTE | 2023-09-17 23:59 | ER ---
Nurse's Notes [facility] Name: Art Corral Age: 27 yrs Sex: Male : 1995 Arrival Date: 09/17/2023 Time: 20:59 Bed 5 Private MD: Diagnosis: Encounter for change or removal of surgical wound dressing Presentation: 09/16 21:28 Chief complaint: Patient states: Pt states he had cholecystectomy last night and was tl4 discharged from this facility earlier today. Pt reports his surgical site has been bleeding. Pt states he "soaked" a total of 13 ABD pads. Pt denies dizziness. Coronavirus screen: At this time, the client does not indicate any symptoms associated with coronavirus-19. Ebola Screen: No symptoms or risks identified at this time. Initial Sepsis Screen: Does the patient meet any 2 criteria? No. Patient's initial sepsis screen is negative. Does the patient have a suspected source of infection? No. Patient's initial sepsis screen is negative. Risk Assessment: Do you want to hurt yourself or someone else? Patient reports no desire to harm self or others. Onset of symptoms was September 17, 2023. 21:28 Method Of Arrival: Wheelchair tl4 21:28 Acuity: BAHMAN 3 tl4 Triage Assessment: 21:33 General: Appears in no apparent distress. Behavior is calm, cooperative. Pain: tl4 Complains of pain in abdomen. EENT: No deficits noted. No signs and/or symptoms were reported regarding the EENT system. Neuro: Level of Consciousness is awake, alert, obeys commands, Oriented to person, place, time, situation, Moves all extremities. Gait is steady, Speech is normal, Facial symmetry appears normal. Cardiovascular: Capillary refill < 3 seconds Patient's skin is warm and dry. Respiratory: Airway is patent Respiratory effort is even, unlabored, Respiratory pattern is regular, symmetrical. GI: No deficits noted. No signs and/or symptoms were reported involving the gastrointestinal system. : No deficits noted. No signs and/or symptoms were reported regarding the genitourinary system. Derm: No deficits noted. No signs and/or symptoms reported regarding the dermatologic system. Musculoskeletal: No deficits noted. No signs and/or symptoms reported regarding the musculoskeletal system. Historical: - Allergies: 21:32 No Known Allergies; tl4 - PMHx: 21:32 None; tl4 - PSHx: 21:32 Cholecystectomy; tl4 - Immunization history:: Adult Immunizations unknown. - Social history:: Smoking status: Patient reports the use of cigarette tobacco products, denies chronic smoking, but will smoke occasionally. - Family history:: not pertinent. - Hospitalizations: : No recent hospitalization is reported. Screenin:23 [facility] ED Fall Risk Assessment (Adult) History of falling in the last 3 months, bm8 including since admission No falls in past 3 months (0 pts) Confusion or Disorientation No (0 pts) Intoxicated or Sedated No (0 pts) Impaired Gait No (0 pts) Mobility Assist Device Used No (0 pt) Altered Elimination No (0 pt) Score/Fall Risk Level 0 - 2 = Low Risk Oriented to surroundings, Maintained a safe environment, Educated pt \\T\\ family on fall prevention, incl call for assistance when getting out of bed. Abuse screen: Denies threats or abuse. Nutritional screening: On bland/soft diet. Tuberculosis screening: No symptoms or risk factors identified. Assessment: 21:16 General: Appears in no apparent distress. comfortable, Behavior is calm, cooperative. bm8 Pain: Complains of pain in umbilical area Pain does not radiate. Pain currently is 0 out of 10 on a pain scale. Quality of pain is described as. Neuro: Level of Consciousness is awake, alert, obeys commands, Oriented to person, place, time, situation. Cardiovascular: No deficits noted. Capillary refill < 3 seconds Patient's skin is warm and dry. Respiratory: No deficits noted. Airway is patent Respiratory effort is even, unlabored, Respiratory pattern is regular, symmetrical. GI: Reports bleeding from umbilicus following darline yesterday. has changed abd pad for 13 times at home. denies pain as long as laying down and relaxed pain shoots to 9 when using abd muscle while walking. : No signs and/or symptoms were reported regarding the genitourinary system. EENT: No signs and/or symptoms were reported regarding the EENT system. Derm: No signs and/or symptoms reported regarding the dermatologic system. Skin is pink, warm \\T\\ dry. Skin temperature is warm Wound noted umbilical area. Musculoskeletal: No signs and/or symptoms reported regarding the musculoskeletal system. 22:12 Reassessment: Patient appears in no apparent distress at this time. Patient and/or bm8 family updated on plan of care and expected duration. Pain level reassessed. Patient is alert, oriented x 3, equal unlabored respirations, skin warm/dry/pink. Patient states symptoms have improved. GI: bleeding controlled post lac repair by surgeon. pt denies pain. wound dressed with 4x4 and foam tape. 22:50 Reassessment: Patient appears in no apparent distress at this time. Patient is alert, bm8 oriented x 3, equal unlabored respirations, skin warm/dry/pink. Patient states feeling better. Patient states symptoms have improved. 09/17 00:06 Reassessment: Patient appears in no apparent distress at this time. No changes from km8 previously documented assessment. Patient and/or family updated on plan of care and expected duration. Pain level reassessed. Patient is alert, oriented x 3, equal unlabored respirations, skin warm/dry/pink. Patient states feeling better. Vital Signs: 09/16 21:28 BP 159 / 88; Pulse 82; Resp 18; Temp 97.8(O); Pulse Ox 98% ; Weight 122.47 kg; Height 5 tl4 ft. 9 in. ; Pain 6/10; 22:13 BP 123 / 80; Pulse 81; Resp 17; Pulse Ox 97% ; Pain 0/10; bm8 22:50 BP 129 / 73; Pulse 82; Resp 17; Temp 98.2; Pulse Ox 98% ; Pain 0/10; bm8 09/17 00:00 BP 114 / 67; Pulse 89; Resp 16; Pulse Ox 98% on R/A; jb4 09/16 21:28 Body Mass Index 39.87 (122.47 kg, 175.26 cm) tl4 09/16 21:28 Pain Scale: Adult tl4 22:13 Pain Scale: Adult bm8 22:50 Pain Scale: Adult bm8 Martha Coma Score: 09/16 21:22 Eye Response: spontaneous(4). Motor Response: obeys commands(6). Verbal Response: bm8 oriented(5). Total: 15. ED Course: 21:00 Patient arrived in ED. gm2 21:00 Gold Sheikh MD is Attending Physician. rn 21:16 Richard Kimble RN is Primary Nurse. bm8 21:18 Inserted saline lock: 22 gauge in right antecubital area, using aseptic technique. rv1 Blood collected. 21:23 Awaiting: surgeon for reevaluation of surgical site. bm8 21:23 Patient has correct armband on for positive identification. Placed in gown. Bed in low bm8 position. Call light in reach. Side rails up X 1. Adult w/ patient. Pulse ox on. NIBP on. Warm blanket given. 21:30 Arm band placed on right wrist. km8 21:32 Triage completed. tl4 22:10 Assist provider with laceration repair on umbilical area that was between 2.6 to 7.5 cm bm8 using sutures. Set up tray. Performed by Rhett Omalley MD Dressed with 4X4s, foam tape Patient tolerated well. 23:58 Rhett Omalley MD is Referral Physician. rn 09/17 00:05 Provided Education on: d/c teaching. km8 00:06 IV discontinued, intact, bleeding controlled, No redness/swelling at site. Pressure km8 dressing applied. Administered Medications: 09/16 21:30 Drug: Lidocaine Infiltration (1 %) 5 ml 5 ml Infiltration once; to bedside {Note: bm8 adminstered by dr. omalley.} Volume: 5 ml; Route: Infiltration; 22:15 Follow up: Response: No adverse reaction bm8 21:40 Drug: Lidocaine Infiltration (1 %) 20 ml 20 ml Infiltration once; to bedside {Note: bm8 administered by dr. omalley.} Volume: 20 ml; Route: Infiltration; Site: wound; 22:15 Follow up: Response: No adverse reaction bm8 Medication: 21:22 VIS not applicable for this client. bm8 Outcome: 23:58 Discharge ordered by . rn 09/17 00:06 Discharged to home via wheelchair, with significant other, km8 Condition: good Discharge instructions given to patient, significant other, Instructed on discharge instructions, follow up and referral plans. Demonstrated understanding of instructions, follow-up care, 00:15 Patient left the ED. bm8 Signatures: Gold Sheikh MD MD rn Bryson, James, RN RN Sailaja Broussard rv1 Lyly Matthew gm2 Farida Lynch RN RN km8 Darren Jacobson RN RN tl4 Richard Kimble RN RN bm8 Corrections: (The following items were deleted from the chart) 00:06 09/16 22:51 Discharged to [facility]
--- NOTE | 2023-09-17 23:59 | EDPHYS ---
Physician Documentation [facility] Name: Art Corral Age: 27 yrs Sex: Male : 1995 Arrival Date: 09/17/2023 Time: 20:59 Bed 5 Private MD: ED Physician Gold Sheikh HPI: 09/16 21:21 This 27 yrs old Male presents to ER via Unassigned with complaints of BLEEDING rn FROM SURGICAL SITE. 21:21 Patient presents to ED for recheck of: Surgical wound. The affected area is on the rn Umbilicus. The patient has not experienced similar symptoms in the past. Patient status post lap darline yesterday with Dr. Omalley. Some discharge from umbilicus was noted yesterday but not bad so discharged. Reports increase in bloody discharge today, has gone through several pads and has noticed clots. Denies dizziness or dyspnea. Not on blood thinners. No previous known bleeding problems.. Historical: - Allergies: 21:32 No Known Allergies; tl4 - PMHx: 21:32 None; tl4 - PSHx: 21:32 Cholecystectomy; tl4 - Immunization history:: Adult Immunizations unknown. - Social history:: Smoking status: Patient reports the use of cigarette tobacco products, denies chronic smoking, but will smoke occasionally. - Family history:: not pertinent. - Hospitalizations: : No recent hospitalization is reported. ROS: 21:21 Constitutional: Negative for fever, chills, and weight loss, Cardiovascular: Negative rn for chest pain, palpitations, and edema, Respiratory: Negative for shortness of breath, cough, wheezing, and pleuritic chest pain, Abdomen/GI: Mild abdominal soreness that has not increased since surgery Skin: Positive for slow bleeding from umbilical wound Exam: 21:21 Constitutional: This is a well developed, well nourished patient who is awake, alert, rn and in no acute distress. Cardiovascular: Regular rate and rhythm. No pulse deficits. Respiratory: No increased work of breathing, no retractions or nasal flaring. Abdomen/GI: Soft, non-tender, nondistended. Umbilical wound with several eden, slow venous ooze from center of wound, stops easily with local pressure. No rebound or guarding. Vital Signs: 21:28 BP 159 / 88; Pulse 82; Resp 18; Temp 97.8(O); Pulse Ox 98% ; Weight 122.47 kg; Height 5 tl4 ft. 9 in. ; Pain 6/10; 22:13 BP 123 / 80; Pulse 81; Resp 17; Pulse Ox 97% ; Pain 0/10; bm8 22:50 BP 129 / 73; Pulse 82; Resp 17; Temp 98.2; Pulse Ox 98% ; Pain 0/10; bm8 09/17 00:00 BP 114 / 67; Pulse 89; Resp 16; Pulse Ox 98% on R/A; jb4 09/16 21:28 Body Mass Index 39.87 (122.47 kg, 175.26 cm) tl4 09/16 21:28 Pain Scale: Adult tl4 22:13 Pain Scale: Adult bm8 22:50 Pain Scale: Adult bm8 Martha Coma Score: 09/16 21:22 Eye Response: spontaneous(4). Motor Response: obeys commands(6). Verbal Response: bm8 oriented(5). Total: 15. MDM: 21:00 Patient medically screened. rn 21:18 Management of patient was discussed with the following: Reel Cart Operator: Consulted with Dr. clarissa Omalley, states is coming in to see patient, does not need immediate imaging or blood work at this time, stable vital signs, slow venous oozing from umbilicus wound.. 23:56 Differential diagnosis: Wound dehiscence, bleeding from surgical wound. Data reviewed: rn vital signs, nurses notes, lab test result(s), and as a result, I will discharge patient. Counseling: I had a detailed discussion with the patient and/or guardian regarding the historical points, exam findings, and any diagnostic results supporting the discharge/admit diagnosis, lab results, the need for outpatient follow up, to return to the emergency department if symptoms worsen or persist or if there are any questions or concerns that arise at home. Response to treatment: the patient's symptoms have resolved after treatment, and as a result, I will discharge patient. Special discussion: I discussed with the patient/guardian in detail that at this point there is no indication for admission to the hospital. It is understood, however, that if the symptoms persist or worsen the patient needs to return immediately for re-evaluation. ED course: Dr. Omalley came and evaluated patient, remove eden and put deeper stitches, redressed wound and there has not been any further bleeding. Patient was performing incentive spirometry breathing exercises while here in ER after urination and got lightheaded, no syncope and vital signs were normal. Quickly returned to baseline without intervention. Dr. Omalley will have patient follow-up with him as an outpatient in a few days and given return precautions. Patient feels much better and comfortable with plan. Patient observed for 2 hours after suture placed by Dr. Omalley and no further bleeding.. 09/16 23:12 Order name: CBC with Diff rn 09/16 23:28 Order name: Manual Differential EDMS 09/16 21:03 Order name: IV Saline Lock; Complete Time: 21:20 rn 09/16 22:10 Order name: Dressing - Wound; Complete Time: 23:02 lg3 09/16 22:10 Order name: Gloves, Sterile; Complete Time: 23:02 lg3 09/16 22:10 Order name: Prolene, Sutures; Complete Time: 23:02 lg3 09/16 22:10 Order name: Setup Suture Tray; Complete Time: 23:02 lg3 Administered Medications: 21:30 Drug: Lidocaine Infiltration (1 %) 5 ml 5 ml Infiltration once; to bedside {Note: bm8 adminstered by dr. omalley.} Volume: 5 ml; Route: Infiltration; 22:15 Follow up: Response: No adverse reaction bm8 21:40 Drug: Lidocaine Infiltration (1 %) 20 ml 20 ml Infiltration once; to bedside {Note: bm8 administered by dr. omalley.} Volume: 20 ml; Route: Infiltration; Site: wound; 22:15 Follow up: Response: No adverse reaction bm8 Disposition Summary: 09/17/23 23:58 Discharge Ordered Notes: Location: Home rn Problem: new rn Symptoms: have improved rn Condition: Stable rn Diagnosis - Encounter for change or removal of surgical wound dressing rn Followup: rn - With: Rhett Omalley MD - When: 5 - 6 days - Reason: Wound Recheck, Recheck today's complaints, Re-evaluation by your physician Discharge Instructions: - Discharge Summary Sheet rn - How to Change Your Wound Dressing rn - Sutures, [place], or Adhesive Wound Closure rn - Incision Care, Adult rn - How to Minimize Scarring After Surgery rn Forms: - Medication Reconciliation Form rn - Thank You Letter rn - Antibiotic handicapper harness racing - Prescription Opioid Use rn - Patient Portal Instructions rn - Leadership Thank You Letter rn Signatures: Dispatcher [employer] EDMS Gold Sheikh MD MD rn Able, Lacie RN RN lg3 Darren Jacobson RN RN tl4 Richard Kimble RN RN bm8 Corrections: (The following items were deleted from the chart) 21: 21:03 Labs collected and sent ordered. rn bm8 21: 21:03 CBC+H.LAB.BRZ ordered. EDMS EDMS 21: 21:04 COMPREHENSIVE METABOLIC PANEL+C.LAB.BRZ ordered. EDMS EDMS
[2023-09-18 01:17] VITALS: BP 114/67; TEMP 98.2; O2SAT 98
[2023-09-18 01:18] LABS: Band Neutrophils 3 % (0-1); Blood Morphology Comment NOT SEEN (NOT SEEN); Differential Total Cells Count 100; Eosinophils 1 % (0-3); Lymphocytes 29 % (15-42); Monocytes 5 % (0-10); Platelet Estimate ADEQ; Reactive Lymphocytes 6 %; Segmented Neutrophils 56 % (40-80)
== END ==
LOC: ER 20:59
DX: Z48.01 Encounter for change or removal of surgical wound dressing (principal); Z90.49 Acquired absence of other specified parts of digestive tract
CPT/HCPCS: 36415; 85025; 99284; J2001